=== PATIENT | female | born 1975 | race Caucasian/White ===

== ENCOUNTER 2018-05-30 13:04 | Inpatient (IN) | payer MEDICAID | END 2018-06-01 14:10 | disposition home or self-care (01) | LOC: ED 13:04 → MU 06-01 14:10 → ED 13:04 → MU 16:51 → ED 13:04 → MU 15:26 → ED 13:04 → MU 15:26 → ED 13:04 → MU 15:26 | DX: H81.10 Benign paroxysmal vertigo, unspecified ear (principal); E11.65 Type 2 diabetes mellitus with hyperglycemia; E66.01 Morbid (severe) obesity due to excess calories; Z68.42 Body mass index [BMI] 45.0-49.9, adult; M54.5 Low back pain; G89.29 Other chronic pain; M72.2 Plantar fascial fibromatosis; Z79.4 Long term (current) use of insulin; F17.210 Nicotine dependence, cigarettes, uncomplicated ==